=== PATIENT | female | born 2000 | race Two or more races ===

== ENCOUNTER 2025-03-04 22:49 | Emergency (ER) | payer OTHER ==
[~2025-03-04] VITALS: Ht 154.9 cm; Wt 65.8 kg
[~2025-03-04 22:49] MED LIST: CEPHALEXIN500 M1 PO; RHOGAM ULTR1500 UNIT IM
[2025-03-04] MEDS ORDERED: PRENATA CHEWAB1 EACH (22:53)
[2025-03-04 23:55] LABS: BASO % 0.5 % (0.1-1.2); EOS # 0.34 (0.04-0.54); EOS % 2.1 % (0.7-7.0); HEMATOCRIT 36.9 % (34.1-44.9); HEMOGLOBIN 12.8 g/dL (11.2-15.7); LYMPH # 2.09 (1.18-3.74); MEAN CORPUSCULAR HEMOGLOBIN 28.8 pg (25.6-32.2); MONO # 1.28 (0.24-0.82); NEUT # 12.12 (1.56-6.13); NEUT % 75.7 % (34.0-71.1); PLATELET COUNT 229 K/uL (163-369); RED BLOOD COUNT 4.44 M/uL (3.93-5.22); RED CELL DISTRIBUTION WIDTH 13.3 % (11.6-14.4)
[2025-03-05 00:38] LABS: PH,URINE 5.5 (5.0-8.0); URINE APPEARANCE Cloudy; URINE BILIRRUBIN Negative (NEGATIVE); URINE BLOOD Large; URINE COLOR Yellow; URINE GLUCOSE Negative (NEGATIVE); URINE KETONE Trace (NEGATIVE); URINE LEUKOCYTE Negative; URINE NITRATE Negative; URINE PROTEIN Negative (NEGATIVE)
[2025-03-05 00:42] LABS: URINE BACTERIA 506.6 uL (0.0-1933); URINE EPITHELIAL CELLS 27.7 uL (0.0-38.8); URINE RBC 6.1 uL (0.0-20.8); URINE WBC 17.7 uL (0.0-23.2)
[2025-03-05 01:34] LABS: URINE CAST 0.29 uL (0.0-1.40); URINE CRYSTALS MANY /HPF
== END 2025-03-05 02:48 | disposition home or self-care (01) ==
LOC: ER 22:49
PROVIDERS: General Practice
DX: O20.9 Hemorrhage in early pregnancy, unspecified (principal); Z3A.12 12 weeks gestation of pregnancy

== ENCOUNTER 2025-05-13 15:05 | Outpatient (CLI) | payer OTHER ==
[~2025-05-13 15:05] MED LIST changes: +PRENATA CHEWAB1 EACH
== END 2025-05-13 15:06 | disposition home or self-care (01) ==
LOC: PRENATAL 15:05
PROVIDERS: ATTEND Obstetrics & Gynecology Maternal & Fetal Medicine
DX: O44.00 Complete placenta previa NOS or without hemorrhage, unspecified trimester (principal); Z14.8 Genetic carrier of other disease; O36.1999 Maternal care for other isoimmunization, unspecified trimester, other fetus; Z3A.21 21 weeks gestation of pregnancy

== ENCOUNTER 2025-07-17 00:20 | Outpatient (CLI) | payer OTHER ==
[2025-07-16 23:59] VITALS: BP 103/64
[~2025-07-17] VITALS: Ht 154.9 cm; Wt 74.8 kg
[2025-07-17] MEDS ORDERED: RINGERS SOLUTION,LACTATED 1,000 ML IV SCH (01:15)
[2025-07-17 01:58] LABS: URINE APPEARANCE Clear; URINE BILIRRUBIN Negative (NEGATIVE); URINE BLOOD Trace; URINE COLOR Yellow; URINE GLUCOSE Negative (NEGATIVE); URINE KETONE Negative (NEGATIVE); URINE LEUKOCYTE Trace; URINE NITRATE Negative; URINE PROTEIN Trace (NEGATIVE); URINE UROBILINOGEN 1.0 E.U./dl
[2025-07-17 02:01] LABS: URINE BACTERIA 699.5 uL (0.0-1933); URINE EPITHELIAL CELLS 24.3 uL (0.0-38.8); URINE RBC 3.9 uL (0.0-20.8); URINE WBC 26.1 uL (0.0-23.2)
[2025-07-17 02:02] LABS: BASO % 0.5 % (0.1-1.2); EOS # 0.26 (0.04-0.54); EOS % 1.6 % (0.7-7.0); LYMPH # 2.22 (1.18-3.74); LYMPH % 13.4 % (19.3-53.1); MEAN PLATELET VOLUME 11.70 fl (9.4-12.4); MONO # 1.22 (0.24-0.82); MONO % 7.4 % (4.7-12.5); NEUT # 12.28 (1.56-6.13); NEUT % 74.0 % (34.0-71.1); RED CELL DISTRIBUTION WIDTH 13.0 % (11.6-14.4)
[2025-07-17 02:19] LABS: URINE CAST 0.00 uL (0.0-1.40)
[2025-07-17 03:55] VITALS: BP 100/55
[2025-07-17 03:58] LABS: BAND MAN 1.0 %; EOSINOPHIL MAN 2.0 %; LYMPHOCYTE MAN 10.0 %; MONOCYTE MAN 10.0 %; NEUTROPHILS MAN 75.0 %
[2025-07-17 06:22] VITALS: BP 104/61; O2SAT 98
[2025-07-17 12:04] VITALS: BP 104/61
== END 2025-07-17 10:25 | disposition home or self-care (01) ==
LOC: OBS/DEL 00:20
PROVIDERS: Obstetrics & Gynecology; ATTEND Obstetrics & Gynecology
DX: O26.843 Uterine size-date discrepancy, third trimester (principal); O36.8130 Decreased fetal movements, third trimester, not applicable or unspecified; O26.853 Spotting complicating pregnancy, third trimester; O36.1930 Maternal care for other isoimmunization, third trimester, not applicable or unspecified; Z3A.31 31 weeks gestation of pregnancy

== ENCOUNTER → 2025-08-15 15:32 | Outpatient (CLI) | payer OTHER | END | disposition home or self-care (01) | LOC: PRENATAL 15:32 | PROVIDERS: ATTEND Obstetrics & Gynecology Maternal & Fetal Medicine | DX: O26.843 Uterine size-date discrepancy, third trimester (principal); O36.8130 Decreased fetal movements, third trimester, not applicable or unspecified; O36.1930 Maternal care for other isoimmunization, third trimester, not applicable or unspecified; Z3A.35 35 weeks gestation of pregnancy ==

== ENCOUNTER 2025-09-17 19:02 | Inpatient (IN) | payer OTHER ==
[~2025-09-17] VITALS: Ht 154.9 cm; Wt 3.2 kg
[2025-09-17 19:45] VITALS: BP 131/78
[2025-09-17] MEDS ORDERED: MISOPROSTOL 25 MCG TABLET VAG STA (21:59)
[2025-09-17] MEDS ORDERED: MORPHINE SULFATE 4 MG/ML VIAL IV PRN (22:00)
[2025-09-17 22:10] LABS: BASO % 0.4 % (0.1-1.2); EOS # 0.10 (0.04-0.54); EOS % 0.7 % (0.7-7.0); LYMPH # 1.50 (1.18-3.74); LYMPH % 10.2 % (19.3-53.1); MEAN PLATELET VOLUME 13.30 fl (9.4-12.4); MONO # 0.92 (0.24-0.82); MONO % 6.3 % (4.7-12.5); NEUT # 11.96 (1.56-6.13); NEUT % 81.3 % (34.0-71.1); RED CELL DISTRIBUTION WIDTH 15.2 % (11.6-14.4)
[2025-09-17 22:12] LABS: URINE APPEARANCE Cloudy; URINE BILIRRUBIN Small (NEGATIVE); URINE BLOOD Large; URINE COLOR Dark Yellow; URINE GLUCOSE Negative (NEGATIVE); URINE KETONE Trace (NEGATIVE); URINE LEUKOCYTE Small; URINE NITRATE Negative; URINE UROBILINOGEN 1.0 E.U./dl
[2025-09-17 22:15] LABS: URINE CAST 1.98 uL (0.0-1.40); URINE EPITHELIAL CELLS 127.0 uL (0.0-38.8); URINE RBC 5.2 uL (0.0-20.8); URINE WBC 183.3 uL (0.0-23.2)
[2025-09-17 22:28] LABS: INR < 0.93
[2025-09-17 22:46] LABS: URINE PROTEIN 100 (NEGATIVE)
[2025-09-17 22:48] LABS: TYPE CELLS SQUAMOUS; URINE MUCUS MODERATE
[2025-09-17 23:59] VITALS: BP 130/74
[2025-09-18 01:59] VITALS: BP 131/78
[2025-09-18 03:11] VITALS: BP 129/81
[2025-09-18] MEDS ORDERED: MISOPROSTOL 25 MCG TABLET VAG STA (05:03)
[2025-09-18 07:37] VITALS: BP 117/54
[2025-09-18 11:15] VITALS: BP 117/72
[2025-09-18] MEDS ORDERED: OXYTOCIN 10 UNITS/ML VIAL ONE ×2 (13:55→19:05)
[2025-09-18] MEDS ORDERED: ERYTHROMYCIN BASE OPHT 1GM EACH TUBE OP ONE (13:56)
[2025-09-18] MEDS ORDERED: CEFOXITIN SODIUM 2,000 MG VIAL IV ONE (15:42)
[2025-09-18] MEDS ORDERED: KETOROLAC TROMETHAMINE 60 MG VIAL IM STA (17:32)
[2025-09-18] MEDS ORDERED: RINGERS SOLUTION,LACTATED 1,000 ML IV SCH (17:45)
[2025-09-18] MEDS ORDERED: CHLORHEXIDINE GLUCONATE 120 ML BOTTLE TP SCH (17:45)
[2025-09-18] MEDS ORDERED: OXYTOCIN 1,000 ML IV SCH (17:45)
[2025-09-18] MEDS ORDERED: MORPHINE SULFATE 4 MG/ML VIAL IV PRN (17:45)
[2025-09-18] MEDS ORDERED: KETOROLAC TROMETHAMINE 60 MG VIAL IM ONE (18:22)
[2025-09-18 18:34] LABS: BASO % 0.2 % (0.1-1.2); EOS # 0.01 (0.04-0.54); EOS % 0.1 % (0.7-7.0); LYMPH # 1.13 (1.18-3.74); LYMPH % 5.9 % (19.3-53.1); MEAN PLATELET VOLUME 12.30 fl (9.4-12.4); MONO # 0.99 (0.24-0.82); MONO % 5.2 % (4.7-12.5); NEUT # 16.79 (1.56-6.13); NEUT % 87.3 % (34.0-71.1); RED CELL DISTRIBUTION WIDTH 14.7 % (11.6-14.4)
[2025-09-19 02:14] VITALS: BP 114/68
[2025-09-19] MEDS ORDERED: OxyCODONE HCL 5 MG TABLET (ROXICODONE) PO PRN (09:00)
[2025-09-19] MEDS ORDERED: ACETAMINOPHEN 325 MG TABLET PO PRN (09:00)
[2025-09-19 09:01] VITALS: BP 125/82
[2025-09-19] MEDS ORDERED: FF) RHO(D) IMMUNE GLOBULIN (POM) IM NR (13:00)
[2025-09-19 13:43] VITALS: BP 124/83
[2025-09-19 17:08] VITALS: BP 135/85
[2025-09-20 01:24] VITALS: BP 118/73
[2025-09-20 09:07] VITALS: BP 128/77
[2025-09-20 19:15] VITALS: BP 135/89
[2025-09-21] VITALS: BP 125/78
[2025-09-21 08:15] VITALS: BP 127/77
== END 2025-09-21 18:22 | disposition home or self-care (01) | DRG 788 ==
LOC: LDR 19:02 → O/R 09-18 15:26 → OB/GYN 09-18 18:12
PROVIDERS: ADMIT Obstetrics & Gynecology; ATTEND Obstetrics & Gynecology
PROC: 3E0P7VZ Introduction of Hormone into Female Reproductive, Via Natural or Artificial Opening (ICD-10-PCS; 2025-09-17)
PROC: 4A1HXCZ Monitoring of Products of Conception, Cardiac Rate, External Approach (ICD-10-PCS; 2025-09-17)
PROC: 3E033VJ Introduction of Other Hormone into Peripheral Vein, Percutaneous Approach (ICD-10-PCS; 2025-09-18)
PROC: 10D00Z1 Extraction of Products of Conception, Low, Open Approach (ICD-10-PCS; principal; 2025-09-18 14:45)
DX: O82 Encounter for cesarean delivery without indication (principal); O62.0 Primary inadequate contractions; Z3A.39 39 weeks gestation of pregnancy